=== PATIENT | female | born 1955 | race Caucasian/White ===

== ENCOUNTER → 2016-07-08 | Outpatient (CLI) | payer OTHER ==
[~2016-07-08] MED LIST: DYAZIDE 37.5-21 EACH PO; ELIQUIS5 MG PO; VASOTEC DPS5 MG PO; ZOLOFT DPS25 MG PO
== END | disposition home or self-care (01) ==
LOC: RAD.S 10:19
DX: Z12.31 Encounter for screening mammogram for malignant neoplasm of breast (principal); R92.1 Mammographic calcification found on diagnostic imaging of breast